=== PATIENT | male | born 1935 | race Hispanic/Latino ===

== ENCOUNTER 2017-06-06 12:51 | Inpatient (IN) | payer MEDICARE, OTHER ==
[~2017-06-06] VITALS: Ht 165.1 cm; Wt 104.5 kg
[2017-06-06] MEDS ORDERED: SODIUM CHLORIDE 0.9% 1000ML 3,000 ML IV ONE (13:14)
[2017-06-06 13:19] LABS: BILIRUBIN,URINE SMALL (NEGATIVE); COLOR,URINE YELLOW (YELLOW); GLUCOSE, URINE (UA) 250 mg/dL (NEGATIVE); KETONES,URINE 5 mg/dL (NEGATIVE); LEUKOCYTE ESTERASE ,URINE MODERATE (NEGATIVE); NITRATE,URINE NEGATIVE (NEGATIVE); OCCULT BLOOD,URINE LARGE (NEGATIVE); PH,URINE 5.5 (5.0-8.0); PROTEIN,URINE >=300 (NEGATIVE)
[2017-06-06 13:23] LABS: APPEARANCE,URINE HAZY (CLEAR)
[2017-06-06 13:24] LABS: BACTERIA,URINE Many /HPF (None Seen); SQUAMOUS EPITHELIAL CELL,UR Rare /HPF (0-2); WBC,URINE TNTC /HPF (0-1)
[2017-06-06 13:44] LABS: BASOPHILS % (AUTO) 0.2 % (0.0-5.0); HEMATOCRIT 33.6 % (42-54); LYMPHOCYTES % (AUTO) 5.9 % (21.0-51.0); MEAN CORPUSCULAR HEMOGLOBIN 26.9 pg (27.0-33.0); MEAN CORPUSCULAR HGB CONC 33.8 g/dL (32.0-36.0); MEAN CORPUSCULAR VOLUME 79.6 fL (79-99); MONOCYTES % (AUTO) 10.8 % (3.0-13.0); NEUTROPHILS % (AUTO) 83.1 % (40.0-77.0); PLATELET COUNT (AUTO) 153 K/uL (130-400); RED BLOOD CELL COUNT(AUTO) 4.23 MIL/uL (4.50-6.20); RED CELL DISTRIBUTION WIDTH 15.7 % (11.0-15.5); WHITE BLOOD COUNT (AUTO) 6.3 K/uL (4.8-10.8)
[2017-06-06 13:52] LABS: CARBON DIOXIDE 26 mmol/L (21-32); CHLORIDE 100 mmol/L (101-111); CREATININE 1.6 mg/dL (0.5-1.5); GLOMERULAR FILTR. RATE CALC 45 mL/min (>60); GLUCOSE,RANDOM 217 mg/dL (70-105); POTASSIUM 3.4 mmol/L (3.5-5.1); SODIUM SERUM 136 mmol/L (136-145); UREA NITROGEN, BLOOD 19 mg/dL (7-18)
[2017-06-06 13:56] LABS: INR 1.04 (0.85-1.15); PARTIAL THROMBOPLASTIN TIME 28.6 SEC (26.3-35.5); PROTHROMBIN TIME 10.9 SEC (9.6-11.6)
[2017-06-06 14:20] LABS: ALANINE AMINOTRANSFERASE 63 U/L (12-78); ASPARTATE AMINOTRANSFERASE 198 U/L (10-37); BILIRUBIN,TOTAL 1.4 mg/dL (0.2-1.0); CREATINE KINASE MB 83.6 ng/mL (0.5-3.6); TOTAL PROTEIN, SERUM 7.7 g/dL (6.0-8.3); TROPONIN I < 0.04 ng/mL (0.00-0.06)
[2017-06-06] MEDS ORDERED: CEFTRIAXONE SODIUM 1 GM ONE (14:26)
[2017-06-06 15:29] LABS: MYOGLOBIN 17209 ng/mL (10-92)
[2017-06-06 15:31] LABS: CREATINE KINASE, TOTAL 9338 U/L (21-232)
[2017-06-06] MEDS: SODIUM CHLORIDE 0.9% 1000ML 1,000 ML IV SCH ×2 (16:06→21:51)
[2017-06-06] MEDS ORDERED: CEFTRIAXONE 1GM/D5W 50ML 50 ML IV SCH (16:15)
[2017-06-06] MEDS ORDERED: GUAIFENESIN-DM 200/20 MG 10 ML PO PRN (16:15)
[2017-06-06] MEDS ORDERED: LACTULOSE 20 GM/30 ML UDCUP PO PRN (16:15)
[2017-06-06] MEDS ORDERED: ACETAMINOPHEN 325 MG TAB PO PRN (16:15)
[2017-06-06] MEDS ORDERED: ACETAMINOPHEN-CODEINE 300/30MG TAB ONE (16:16)
[2017-06-06] MEDS ORDERED: ONDANSETRON HCL MDV 20ML 2 MG/ML VIAL IVP PRN (16:30)
[2017-06-06 21:00] VITALS: BP 155/80
[2017-06-06] MEDS ORDERED: FENO145T37 PO (21:22)
[2017-06-06] MEDS ORDERED: SITA100T12 PO (21:22)
[2017-06-06] MEDS ORDERED: LOSA50TA37 PO (21:22)
[2017-06-06] MEDS ORDERED: METO50TA18 PO (21:22)
[2017-06-06] MEDS ORDERED: PRAV40TA3 PO (21:22)
[2017-06-06] MEDS ORDERED: AMLO10TA2 PO (21:22)
[2017-06-06] MEDS ORDERED: PIOG30TA26 PO (21:22)
[2017-06-06] MEDS: FAMOTIDINE/PF 20 MG/2 ML VIAL IV SCH (21:51)
[2017-06-07] VITALS (7 sets, daily range): BP systolic 140–166; BP diastolic 65–92
[2017-06-07] MEDS: ACETAMINOPHEN 325 MG TAB PO PRN ×2 (00:02→20:20)
[2017-06-07] MEDS: SODIUM CHLORIDE 0.9% 1000ML 1,000 ML IV SCH ×4 (03:32→20:41)
[2017-06-07 04:52] LABS: HEMATOCRIT 31.2 % (42-54); MEAN CORPUSCULAR VOLUME 79.9 fL (79-99); PLATELET COUNT (AUTO) 150 K/uL (130-400); WHITE BLOOD COUNT (AUTO) 6.2 K/uL (4.8-10.8)
[2017-06-07 05:46] LABS: ALBUMIN 2.4 g/dL (3.5-5.0); BILIRUBIN,TOTAL 1.1 mg/dL (0.2-1.0); CREATINE KINASE MB 21.7 ng/mL (0.5-3.6); CREATININE 1.4 mg/dL (0.5-1.5); POTASSIUM 3.3 mmol/L (3.5-5.1); TOTAL PROTEIN, SERUM 6.6 g/dL (6.0-8.3); TROPONIN I 0.05 ng/mL (0.00-0.06)
[2017-06-07] MEDS ORDERED: GLUCAGON 1MG KIT 1 MG ML IM PRN (06:00)
[2017-06-07] MEDS ORDERED: DEXTROSE 50%-WATER 50 ML DISP.SYRIN IV PRN (06:00)
[2017-06-07] MEDS: INSULIN HUMULIN R 100 UNIT/ML 3ML SQ SCH ×4 (06:40→20:15)
[2017-06-07] MEDS: CEFTRIAXONE SODIUM 1 GM IVP SCH (08:18)
[2017-06-07] MEDS: FAMOTIDINE/PF 20 MG/2 ML VIAL IV SCH ×2 (09:00→20:20)
[2017-06-07] MEDS ORDERED: DIATR MEGLU/DIATRIZOATE SODIUM 30 ML BOTTLE ONE (11:02)
[2017-06-07] MEDS: METOPROLOL TARTRATE 50 MG TAB PO SCH (20:19)
[2017-06-08] MEDS: SODIUM CHLORIDE 0.9% 1000ML 1,000 ML IV SCH ×2 (02:24→05:00)
[2017-06-08 04:00] VITALS: BP 126/63
[2017-06-08 05:40] LABS: HEMATOCRIT 28.3 % (42-54); MEAN CORPUSCULAR HEMOGLOBIN 27.3 pg (27.0-33.0); MEAN CORPUSCULAR HGB CONC 34.4 g/dL (32.0-36.0); MEAN CORPUSCULAR VOLUME 79.3 fL (79-99); PLATELET COUNT (AUTO) 145 K/uL (130-400); RED BLOOD CELL COUNT(AUTO) 3.57 MIL/uL (4.50-6.20); RED CELL DISTRIBUTION WIDTH 16.1 % (11.0-15.5)
[2017-06-08 06:10] LABS: BILIRUBIN,TOTAL 0.5 mg/dL (0.2-1.0); CREATININE 1.1 mg/dL (0.5-1.5); POTASSIUM 3.3 mmol/L (3.5-5.1)
[2017-06-08] MEDS: INSULIN HUMULIN R 100 UNIT/ML 3ML SQ SCH ×4 (07:19→21:00)
[2017-06-08 08:00] VITALS: BP 130/76
[2017-06-08 08:27] LABS: BASOPHILS % (MANUAL) 1 % (0-2); EOSINOPHILS % (MANUAL) 2 % (1-6); LYMPHOCYTES % (MANUAL) 8 % (22-44); MAN.DIFF COMMENT-IMPRESSION MANUAL DIFFERENTIAL; MONOCYTES % (MANUAL) 14 % (2-9); PLATELET MORPHOLOGY COMMENT ADEQUATE; REACTIVE LYMPHOCYTES 1 % (0-0); SEGMENTED NEUTROPHILS % 74 % (40-70)
[2017-06-08] MEDS: THIAMINE HCL 100 MG TABLET PO SCH (08:43)
[2017-06-08] MEDS: AMLODIPINE BESYLATE 5 MG TAB PO SCH (08:43)
[2017-06-08] MEDS: METOPROLOL TARTRATE 50 MG TAB PO SCH ×2 (08:43→20:21)
[2017-06-08] MEDS: FOLIC ACID/VITAMIN B COMP W-C 1 MG CAPSULE PO SCH (08:43)
[2017-06-08] MEDS: CEFTRIAXONE SODIUM 1 GM IVP SCH (08:55)
[2017-06-08] MEDS: FAMOTIDINE/PF 20 MG/2 ML VIAL IV SCH ×2 (09:00→20:25)
[2017-06-08] MEDS ORDERED: MORPHINE SULFATE 4 MG/1ML SYG IVP PRN (10:00)
[2017-06-08] MEDS ORDERED: ACETAMINOPHEN-CODEINE 300/30MG TAB PO PRN (10:00)
[2017-06-08] MEDS ORDERED: MORPHINE SULFATE 2 MG/ML 1ML SYG IVP PRN (10:00)
[2017-06-08] MEDS: LINAGLIPTIN 5 MG TABLET PO SCH (11:20)
[2017-06-08 12:00] VITALS: BP_SYST 132; BP_SYST 158; BP_DIAS 101; BP_DIAS 76
[2017-06-08] MEDS: MEROPENEM 500 MG VIAL IVP SCH ×2 (13:26→21:26)
[2017-06-08] MEDS: SIMETHICONE 80 MG TAB.CHEW PO SCH ×3 (13:27→20:21)
[2017-06-08] MEDS ORDERED: MEROPENEM 500MG+NS 50ML 50 ML IV SCH (14:00)
[2017-06-08 16:00] VITALS: BP 158/76
[2017-06-08 20:00] VITALS: BP 143/70
[2017-06-09] VITALS: BP 134/57
[2017-06-09 04:00] VITALS: BP 138/64
[2017-06-09] MEDS: MEROPENEM 500 MG VIAL IVP SCH ×2 (06:33→18:14)
[2017-06-09 06:55] LABS: CREATININE 1.1 mg/dL (0.5-1.5); POTASSIUM 3.5 mmol/L (3.5-5.1)
[2017-06-09 07:01] LABS: HEMATOCRIT 28.6 % (42-54); MEAN CORPUSCULAR HEMOGLOBIN 27.8 pg (27.0-33.0); MEAN CORPUSCULAR HGB CONC 35.1 g/dL (32.0-36.0); MEAN CORPUSCULAR VOLUME 79.3 fL (79-99); PLATELET COUNT (AUTO) 166 K/uL (130-400); RED CELL DISTRIBUTION WIDTH 15.9 % (11.0-15.5); WHITE BLOOD COUNT (AUTO) 4.3 K/uL (4.8-10.8)
[2017-06-09] MEDS: INSULIN HUMULIN R 100 UNIT/ML 3ML SQ SCH ×4 (07:30→21:00)
[2017-06-09 08:17] VITALS: BP 138/62
[2017-06-09] MEDS: FAMOTIDINE/PF 20 MG/2 ML VIAL IV SCH ×2 (09:00→20:18)
[2017-06-09] MEDS: **HM** FENOFIBRATE 160MG PO SCH (09:00)
[2017-06-09] MEDS: FOLIC ACID/VITAMIN B COMP W-C 1 MG CAPSULE PO SCH (09:36)
[2017-06-09] MEDS: LOSARTAN 50 MG TABLET PO SCH (09:36)
[2017-06-09] MEDS: AMLODIPINE BESYLATE 5 MG TAB PO SCH (09:36)
[2017-06-09] MEDS: LINAGLIPTIN 5 MG TABLET PO SCH (09:36)
[2017-06-09] MEDS: THIAMINE HCL 100 MG TABLET PO SCH (09:36)
[2017-06-09] MEDS: SIMETHICONE 80 MG TAB.CHEW PO SCH ×4 (09:36→20:19)
[2017-06-09] MEDS: METOPROLOL TARTRATE 50 MG TAB PO SCH ×2 (09:36→20:19)
[2017-06-09 11:20] VITALS: BP 119/54
[2017-06-09] MEDS: ACETAMINOPHEN-CODEINE 300/30MG TAB PO PRN (12:00)
[2017-06-09] MEDS ORDERED: LEVOFLOXACIN 500 MG/D5W 100 ML 100 ML IV SCH (12:15)
[2017-06-09 17:05] VITALS: BP 149/69
[2017-06-09 20:00] VITALS: BP 136/64
[2017-06-10] VITALS: BP 146/60
[2017-06-10 04:00] VITALS: BP 143/67
[2017-06-10 05:36] LABS: HEMATOCRIT 28.5 % (42-54); MEAN CORPUSCULAR HEMOGLOBIN 27.3 pg (27.0-33.0); MEAN CORPUSCULAR HGB CONC 34.3 g/dL (32.0-36.0); MEAN CORPUSCULAR VOLUME 79.6 fL (79-99); PLATELET COUNT (AUTO) 194 K/uL (130-400); RED BLOOD CELL COUNT(AUTO) 3.58 MIL/uL (4.50-6.20); RED CELL DISTRIBUTION WIDTH 15.9 % (11.0-15.5); WHITE BLOOD COUNT (AUTO) 3.7 K/uL (4.8-10.8)
[2017-06-10 05:54] LABS: POTASSIUM 3.5 mmol/L (3.5-5.1)
[2017-06-10] MEDS: INSULIN HUMULIN R 100 UNIT/ML 3ML SQ SCH (06:35)
[2017-06-10 08:04] VITALS: BP 157/67
[2017-06-10] MEDS: FAMOTIDINE/PF 20 MG/2 ML VIAL IV SCH (09:00)
[2017-06-10] MEDS: **HM** FENOFIBRATE 160MG PO SCH (09:00)
[2017-06-10] MEDS ORDERED: ENOXAPARIN SODIUM 30 MG/0.3 ML SQ SCH (09:00)
[2017-06-10] MEDS: THIAMINE HCL 100 MG TABLET PO SCH (10:11)
[2017-06-10] MEDS: LINAGLIPTIN 5 MG TABLET PO SCH (10:11)
[2017-06-10] MEDS: LOSARTAN 50 MG TABLET PO SCH (10:11)
[2017-06-10] MEDS: METOPROLOL TARTRATE 50 MG TAB PO SCH (10:11)
[2017-06-10] MEDS: FOLIC ACID/VITAMIN B COMP W-C 1 MG CAPSULE PO SCH (10:11)
[2017-06-10] MEDS: ACETAMINOPHEN-CODEINE 300/30MG TAB PO PRN (10:11)
[2017-06-10] MEDS: AMLODIPINE BESYLATE 5 MG TAB PO SCH (10:11)
[2017-06-10] MEDS: SIMETHICONE 80 MG TAB.CHEW PO SCH ×2 (10:11→14:38)
[2017-06-10 11:38] VITALS: BP 132/54
[2017-06-10] MEDS ORDERED: LEVOFLOXACIN 250 MG/D5W 50ML IVPB SCH (12:15)
[2017-09-08] MEDS ORDERED: LINA5TAB PO (13:43)
[2017-09-08] MEDS ORDERED: DONE5TAB33 PO (13:43)
[2017-09-08] MEDS ORDERED: DULO30CA51 PO (13:43)
[2017-09-08] MEDS ORDERED: TAMS-1 PO (13:43)
[2017-09-08] MEDS ORDERED: PREG75 PO (13:43)
== END 2017-06-10 19:00 | DRG 872 ==
LOC: EDH 12:51 → EDHIP 16:06 → 4BH 21:08
PROVIDERS: ADMIT Family Medicine; ATTEND Family Medicine
DX: A41.9 Sepsis, unspecified organism (principal); N17.9 Acute kidney failure, unspecified; E11.21 Type 2 diabetes mellitus with diabetic nephropathy; K56.7 Ileus, unspecified; M62.82 Rhabdomyolysis; E86.0 Dehydration; N39.0 Urinary tract infection, site not specified; W19.XXXA Unspecified fall, initial encounter; D64.9 Anemia, unspecified; B96.20 Unspecified Escherichia coli [E. coli] as the cause of diseases classified elsewhere; B96.89 Other specified bacterial agents as the cause of diseases classified elsewhere; E78.5 Hyperlipidemia, unspecified; F03.90 Unspecified dementia, unspecified severity, without behavioral disturbance, psychotic disturbance, mood disturbance, and anxiety; I10 Essential (primary) hypertension; M47.9 Spondylosis, unspecified; N20.0 Calculus of kidney; R32 Unspecified urinary incontinence; Z86.73 Personal history of transient ischemic attack (TIA), and cerebral infarction without residual deficits; Z87.440 Personal history of urinary (tract) infections; Z91.81 History of falling; Y93.89 Activity, other specified; Y92.89 Other specified places as the place of occurrence of the external cause; Y99.8 Other external cause status
CPT/HCPCS: 36415; 71045; 72100; 72170; 73610; 73630; 74018; 74176; 76770; 80048; 80053; 81001; 82550; 82553; 82948; 83605; 83735; 83874; 84484; 85025; 85027; 85610; 85730; 87040; 87088; 87186; 93005; 93970; 97039; A4218; J0696; J1650; J1956; J2185; J3490; J7030; Q9963

== ENCOUNTER → 2017-08-31 | Outpatient (CLI) | payer OTHER ==
[~2017-08-31] MED LIST: AMLO10TA2 PO; DONE5TAB33 PO; DULO30CA51 PO; FENO145T37 PO; IOPAMIDOL-370 75 ML VIAL IV ONE; LINA5TAB PO; LOSA50TA37 PO; METO50TA18 PO; PIOG30TA70 PO; PRAV40TA3 PO; PREG75 PO; SITA100T12 PO; TAMS-1 PO
== END | disposition home or self-care (01) ==
LOC: RAH 07:48
PROVIDERS: ATTEND Internal Medicine
DX: N28.1 Cyst of kidney, acquired (principal)
CPT/HCPCS: 74178; Q9967

== ENCOUNTER → 2017-09-08 | Outpatient (CLI) | payer OTHER ==
[~2017-09-08] VITALS: Ht 162.6 cm; Wt 90.1 kg
[~2017-09-08] MED LIST changes: -IOPAMIDOL-370 75 ML VIAL IV ONE
[2017-09-08 11:38] LABS: BASOPHILS % (AUTO) 0.4 % (0.0-5.0); EOSINOPHILS % (AUTO) 2.6 % (0.0-8.0); HEMATOCRIT 37.8 % (42-54); LYMPHOCYTES % (AUTO) 26.5 % (21.0-51.0); MEAN CORPUSCULAR HGB CONC 35.1 g/dL (32.0-36.0); MEAN CORPUSCULAR VOLUME 82.8 fL (79-99); MONOCYTES % (AUTO) 8.5 % (3.0-13.0); NUCLEATED RED BLOOD CELLS 0.1 % (0.0-0.19); PLATELET COUNT (AUTO) 156 K/uL (130-400); RED BLOOD CELL COUNT(AUTO) 4.57 MIL/uL (4.50-6.20); RED CELL DISTRIBUTION WIDTH 14.8 % (11.0-15.5); WHITE BLOOD COUNT (AUTO) 4.8 K/uL (4.8-10.8)
[2017-09-08 11:46] LABS: INR 1.06 (0.85-1.15); PROTHROMBIN TIME 11.1 SEC (9.6-11.6)
[2017-09-08 11:47] LABS: CREATININE 1.4 mg/dL (0.5-1.5); POTASSIUM 3.6 mmol/L (3.5-5.1)
[2017-09-08 11:59] LABS: APPEARANCE,URINE Clear (CLEAR); BILIRUBIN,URINE Negative (NEGATIVE); COLOR,URINE Yellow (YELLOW); GLUCOSE, URINE (UA) Negative (NEGATIVE); KETONES,URINE Negative (NEGATIVE); LEUKOCYTE ESTERASE ,URINE Negative (NEGATIVE); NITRATE,URINE Negative (NEGATIVE); OCCULT BLOOD,URINE Negative (NEGATIVE); PROTEIN,URINE Negative (NEGATIVE)
[2017-09-08 12:20] VITALS: BP 147/66
== END | disposition home or self-care (01) ==
LOC: DAH 10:00 → EDSTATUS 11:15
PROVIDERS: ATTEND Surgery
DX: Z01.818 Encounter for other preprocedural examination (principal); C18.6 Malignant neoplasm of descending colon; I10 Essential (primary) hypertension; E78.5 Hyperlipidemia, unspecified; E11.9 Type 2 diabetes mellitus without complications
CPT/HCPCS: 36415; 80048; 81003; 85025; 85610; 93005

== ENCOUNTER → 2017-09-14 | Outpatient (CLI) | payer OTHER ==
[~2017-09-14] VITALS: Ht 160 cm; Wt 88.9 kg
[~2017-09-14] MED LIST changes: +REGADENOSON 0.4 MG/5 ML PF SYG IVP SCH; -SITA100T12 PO
== END | disposition home or self-care (01) ==
LOC: SHCH 09:08
PROVIDERS: ATTEND Internal Medicine Cardiovascular Disease
DX: R94.31 Abnormal electrocardiogram [ECG] [EKG] (principal); R05 Cough; R06.00 Dyspnea, unspecified
CPT/HCPCS: 78452; 93017; 96374; A9500 ×2; J2785

== ENCOUNTER 2018-06-25 16:48 | Inpatient (IN) | payer OTHER ==
[~2018-06-25] VITALS: Ht 167.6 cm; Wt 90.6 kg
[~2018-06-25 16:48] MED LIST changes: +ACET1TAB12 PO; -AMLO10TA2 PO; +AMLO10TA7 PO; -LOSA50TA37 PO; +LOSA50TA64 PO; -PREG75 PO; -REGADENOSON 0.4 MG/5 ML PF SYG IVP SCH
[2018-06-25 18:31] LABS: BASOPHILS % (AUTO) 0.3 % (0.0-5.0); EOSINOPHILS % (AUTO) 1.2 % (0.0-8.0); HEMATOCRIT 40.8 % (42-54); LYMPHOCYTES % (AUTO) 17.6 % (21.0-51.0); MEAN CORPUSCULAR HEMOGLOBIN 28.5 pg (27.0-33.0); MEAN CORPUSCULAR HGB CONC 33.9 g/dL (32.0-36.0); MEAN CORPUSCULAR VOLUME 84.1 fL (79-99); MONOCYTES % (AUTO) 6.2 % (3.0-13.0); NEUTROPHILS % (AUTO) 74.7 % (40.0-77.0); NUCLEATED RED BLOOD CELLS 0.1 % (0.0-0.19); PLATELET COUNT (AUTO) 148 K/uL (130-400); RED BLOOD CELL COUNT(AUTO) 4.85 MIL/uL (4.50-6.20); RED CELL DISTRIBUTION WIDTH 18.2 % (11.0-15.5); WHITE BLOOD COUNT (AUTO) 5.2 K/uL (4.8-10.8)
[2018-06-25 18:42] LABS: CREATININE 1.1 mg/dL (0.5-1.5); POTASSIUM 3.6 mmol/L (3.5-5.1)
[2018-06-25 18:43] LABS: APPEARANCE,URINE Clear (CLEAR); BILIRUBIN,URINE Negative (NEGATIVE); COLOR,URINE Yellow (YELLOW); GLUCOSE, URINE (UA) Negative (NEGATIVE); KETONES,URINE Negative (NEGATIVE); LEUKOCYTE ESTERASE ,URINE Negative (NEGATIVE); NITRATE,URINE Negative (NEGATIVE); OCCULT BLOOD,URINE Negative (NEGATIVE); PROTEIN,URINE Negative (NEGATIVE); UROBILINOGEN,URINE 0.2 mg/dL (0.2-1.0)
[2018-06-25 18:46] LABS: ALBUMIN 3.8 g/dL (3.5-5.0); BILIRUBIN,TOTAL 0.5 mg/dL (0.2-1.0); TOTAL PROTEIN, SERUM 7.3 g/dL (6.0-8.3)
[2018-06-25] MEDS ORDERED: HYDROCODONE/ACETAMINOPHEN 5/325 MG TAB ONE (19:26)
[2018-06-25] MEDS ORDERED: METOPROLOL TARTRATE 50 MG TAB ONE (20:32)
[2018-06-25] MEDS ORDERED: ATORVASTATIN CALCIUM 10 MG TABLET PO SCH (21:30)
[2018-06-25] MEDS ORDERED: DULOXETINE HCL 30 MG CAP PO SCH (21:30)
--- NOTE | 2018-06-25 22:05 | NUR ---
ADMISSION NOTE ADMIT PATIENT TO ROOM 409 VIA STRETCHER FROM ER. PATIENT AWAKE, ALERT, OX3, LEFT HAND 20 GAUGE CATHETER PATENT, PLACE ON FALL PRECAUTIONS, PATIENT S FAMILY AT BEDSIDE, TEACH PLAN OF CARE AND EXPECTED OUTCOME, BOTH VERBALIZES UNDERSTANDING VIA TEACH BACK
[2018-06-25] MEDS ORDERED: DIFENIDOL PO (22:34)
[2018-06-25] MEDS ORDERED: FERR159T2 PO (22:34)
[2018-06-25] MEDS ORDERED: METO50TA18 PO (22:34)
[2018-06-25] MEDS ORDERED: SERT50TA12 PO (22:34)
[2018-06-25] MEDS ORDERED: GLIM2TAB3 PO (22:34)
[2018-06-25] MEDS ORDERED: ERGO500014 PO (22:34)
[2018-06-25] MEDS ORDERED: TAMS-1 PO (22:34)
[2018-06-25 23:10] VITALS: BP 179/103
[2018-06-26] VITALS (9 sets, daily range): BP systolic 156–195; BP diastolic 72–105
[2018-06-26] MEDS: HYDROCODONE/ACETAMINOPHEN 5/325 MG TAB PO PRN ×2 (03:47→20:13)
[2018-06-26] MEDS ORDERED: HYDRALAZINE HCL 20 MG/ML VIAL ONE ×2 (04:04→04:13)
--- NOTE | 2018-06-26 04:15 | NUR ---
B/P B/P 200/105, P 83 R 20 TEMP 97.9 F SAT 95 R/A, CALLED BENCH DIANA SYRUP MIXER ASSISTANT REJI ADAN REFINERY OPERATOR [facility] INFORMED WITH ORDERS, HYDRALAZINE 20 MG IVP GIVEN SLOWLY
--- NOTE | 2018-06-26 05:00 | NUR ---
MED EFFECT B/P 167/85
[2018-06-26] MEDS: HYDRALAZINE HCL 20 MG/ML VIAL IV SCH ×2 (06:05→19:21)
[2018-06-26] MEDS: TAMSULOSIN HCL 0.4 MG CAP.ER.24H PO SCH (08:14)
[2018-06-26] MEDS: FERROUS SULFATE 325 MG TABLET.DR PO SCH (08:14)
[2018-06-26] MEDS: METOPROLOL TARTRATE 50 MG TAB PO SCH ×2 (08:14→20:08)
[2018-06-26] MEDS: LOSARTAN 50 MG TABLET PO SCH (08:15)
[2018-06-26] MEDS: GLIMEPIRIDE 2 MG TABLET PO SCH (08:15)
[2018-06-26] MEDS: ATORVASTATIN CALCIUM 10 MG TABLET PO SCH (08:15)
[2018-06-26] MEDS: **HM** FENOFIBRATE 160MG PO SCH (08:21)
[2018-06-26] MEDS ORDERED: DIFENIDOL PO PRN (09:00)
--- NOTE | 2018-06-26 10:00 | NUR ---
NOT TOLERATING PO DIET PATIENT ATTEMPTED LOW FAT SOFT DIET. PATIENT REPORTS SHORTING AFTER DRINKING ORANGE JUICE, SHE STARTED FEELING NAUSEOUS AND REPORTS "THROWING UP", ALSO REPORTS ABDOMINAL PAIN WORSENED AFTER EATING. ADMINISTERED PRN TORADOL IV AND PRN ZOFRAN IV. WILL CONTINUE TO MONITOR. Addendum: 06/26/18 at 1024 by ELVA KNIGHT RN RN DISREGARD NOTE. ENTERED IN ERROR.
--- NOTE | 2018-06-26 12:38 | NUR ---
Nutrition Intervention: Nutrition consult due uncontrolled hypertension and poor appetite. Pt. admitted with Dx of Weakness. Pt. on 75gm CCD diet. Pt. reports ate <50% of his b'fast meal this morning. Spoke with pt. regarding nutritional supplementation and pt. agreed to try. Labs reviewed(Alb 3.8). LBM: 06/25/18. SR-19, Righ hip & arm bruise. BMI: 32.2, overweight for age. Pt. educated on Low Sodium diet and provided with education material. Pt. verbalized understanding. Recommendations: 1) Rec. 2gm Na 75gm CCD diet. 2) Rec. Encinal Glucerna supp. BID with B'fast and dinner meals. 3) Continue to monitor pt's nutritional status. 4) Consult RD as nutrition concerns arise. Addendum: 06/26/18 at [address] Amended: Links added.
--- NOTE | 2018-06-26 16:45 | NUR ---
ELEVATED BLOOD PRESSURE BLOOD PRESSURE REPORTED 187/97. ADMINISTERED APRESOLINE 10MG IV PRN.
[2018-06-26] MEDS: HYDRALAZINE HCL 20 MG/ML VIAL IV PRN (16:48)
--- NOTE | 2018-06-26 17:00 | NUR ---
BP REASSESSMENT BLOOD PRESSURE RECHECK REPORTED 161/82, PATIENT ASYMPTOMATIC WILL CONTINUE TO MONITOR.
[2018-06-26] MEDS ORDERED: SERTRALINE HCL 50 MG TABLET PO SCH (21:00)
[2018-06-27] VITALS (7 sets, daily range): BP systolic 160–192; BP diastolic 67–103
[2018-06-27 05:39] LABS: BASOPHILS % (AUTO) 0.3 % (0.0-5.0); HEMATOCRIT 40.8 % (42-54); LYMPHOCYTES % (AUTO) 27.4 % (21.0-51.0); MEAN CORPUSCULAR HEMOGLOBIN 28.7 pg (27.0-33.0); MEAN CORPUSCULAR HGB CONC 33.7 g/dL (32.0-36.0); MEAN CORPUSCULAR VOLUME 85.1 fL (79-99); MONOCYTES % (AUTO) 9.2 % (3.0-13.0); NEUTROPHILS % (AUTO) 61.1 % (40.0-77.0); PLATELET COUNT (AUTO) 173 K/uL (130-400); RED CELL DISTRIBUTION WIDTH 18.1 % (11.0-15.5); WHITE BLOOD COUNT (AUTO) 4.7 K/uL (4.8-10.8)
[2018-06-27 05:51] LABS: HEMOGLOBIN A1C 5.6 % (4.0-6.0)
[2018-06-27 06:01] LABS: CREATININE 1.1 mg/dL (0.5-1.5); MAGNESIUM 1.8 mg/dL (1.80-2.40); PHOSPHORUS 3.9 mg/dL (2.5-4.9); POTASSIUM 3.4 mmol/L (3.5-5.1)
--- NOTE | 2018-06-27 07:45 | NUR ---
ELEVATED BP BLOOD PRESSURED REPORTED 192/103. ADMINISTERED APRESOLINE 10MG IV PRN.
[2018-06-27] MEDS: HYDROCODONE/ACETAMINOPHEN 5/325 MG TAB PO PRN ×2 (07:50→18:08)
[2018-06-27] MEDS: HYDRALAZINE HCL 20 MG/ML VIAL IV PRN ×2 (07:51→23:10)
[2018-06-27] MEDS ORDERED: POTASSIUM CHLORIDE 20 MEQ ERTAB PO PRN (08:15)
[2018-06-27] MEDS ORDERED: LIDOCAINE HCL-MPF 1% 2ML VIAL IVP PRN (08:15)
[2018-06-27] MEDS ORDERED: POTASSIUM CHLORIDE 10% ELIXIR 20 MEQ/15 ML UDCUP PO PRN (08:15)
[2018-06-27] MEDS ORDERED: POTASSIUM CHLORIDE 20MEQ/100ML 100 ML IV PRN (08:15)
--- NOTE | 2018-06-27 08:15 | NUR ---
BP RECHECK BLOOD PRESSURE REASSESSMENT 160/77, PATIENT ASYMPTOMATIC.
[2018-06-27] MEDS: **HM** FENOFIBRATE 160MG PO SCH (09:00)
[2018-06-27] MEDS: ATORVASTATIN CALCIUM 10 MG TABLET PO SCH (09:12)
[2018-06-27] MEDS: FERROUS SULFATE 325 MG TABLET.DR PO SCH (09:13)
[2018-06-27] MEDS: GLIMEPIRIDE 2 MG TABLET PO SCH (09:13)
[2018-06-27] MEDS: LOSARTAN 50 MG TABLET PO SCH (09:13)
[2018-06-27] MEDS: PANTOPRAZOLE SODIUM 40 MG TABLET.DR PO SCH (09:13)
[2018-06-27] MEDS: METOPROLOL TARTRATE 50 MG TAB PO SCH ×2 (09:13→19:51)
[2018-06-27] MEDS: TAMSULOSIN HCL 0.4 MG CAP.ER.24H PO SCH (09:13)
[2018-06-27] MEDS: DULOXETINE HCL 30 MG CAP PO SCH ×2 (09:14→19:51)
--- NOTE | 2018-06-27 14:18 | NUR ---
cm note met with patient and states resides athome alone, uses walker and w/c, also states has hx of falls, informed of md orders for snf. and states that he is aware, and has been at [facility] in the past, choice letter signed, call made to daughter per pt request and spoke to talia hough, and states that she is in agreemetn for referral, states ok to refer to [facility], informed pt had concerns regarding if they will accept. not sure if he had a balance. but. per daughter states there was other issues, but ok to refer to [facility] and see if they will accept. Addendum: 06/27/18 at 1421 by CLAUDINE RICHARDSON CM Amended: Links added.
[2018-06-27] MEDS: HYDRALAZINE HCL 20 MG/ML VIAL IV SCH (19:49)
[2018-06-28] VITALS (7 sets, daily range): BP systolic 149–182; BP diastolic 64–88
[2018-06-28] MEDS: HYDROCODONE/ACETAMINOPHEN 5/325 MG TAB PO PRN ×2 (06:20→12:12)
[2018-06-28 06:27] LABS: BASOPHILS % (AUTO) 0.3 % (0.0-5.0); EOSINOPHILS % (AUTO) 2.5 % (0.0-8.0); HEMATOCRIT 40.5 % (42-54); LYMPHOCYTES % (AUTO) 22.8 % (21.0-51.0); MEAN CORPUSCULAR HEMOGLOBIN 28.6 pg (27.0-33.0); MEAN CORPUSCULAR HGB CONC 33.5 g/dL (32.0-36.0); MEAN CORPUSCULAR VOLUME 85.5 fL (79-99); MONOCYTES % (AUTO) 8.7 % (3.0-13.0); NEUTROPHILS % (AUTO) 65.7 % (40.0-77.0); PLATELET COUNT (AUTO) 150 K/uL (130-400); RED BLOOD CELL COUNT(AUTO) 4.74 MIL/uL (4.50-6.20); RED CELL DISTRIBUTION WIDTH 18.2 % (11.0-15.5); WHITE BLOOD COUNT (AUTO) 4.6 K/uL (4.8-10.8)
[2018-06-28 06:36] LABS: CREATININE 1.1 mg/dL (0.5-1.5); POTASSIUM 3.6 mmol/L (3.5-5.1)
[2018-06-28] MEDS: LOSARTAN 50 MG TABLET PO SCH (08:29)
[2018-06-28] MEDS: TAMSULOSIN HCL 0.4 MG CAP.ER.24H PO SCH (08:29)
[2018-06-28] MEDS: PANTOPRAZOLE SODIUM 40 MG TABLET.DR PO SCH (08:29)
[2018-06-28] MEDS: GLIMEPIRIDE 2 MG TABLET PO SCH (08:30)
[2018-06-28] MEDS: METOPROLOL TARTRATE 50 MG TAB PO SCH ×2 (08:30→21:21)
[2018-06-28] MEDS: ATORVASTATIN CALCIUM 10 MG TABLET PO SCH (08:30)
[2018-06-28] MEDS: FERROUS SULFATE 325 MG TABLET.DR PO SCH (08:31)
[2018-06-28] MEDS: DULOXETINE HCL 30 MG CAP PO SCH ×2 (08:31→21:21)
[2018-06-28] MEDS: **HM** FENOFIBRATE 160MG PO SCH (08:31)
--- NOTE | 2018-06-28 08:50 | NUR ---
JONNY PAGED AGAIN, PENDING CALL BACK
[2018-06-28] MEDS ORDERED: ERGOCALCIFEROL (VITAMIN D2) 50,000 UNIT CAPSULE PO SCH (09:00)
[2018-06-28 09:14] LABS: CREATINE KINASE, TOTAL 123 U/L (21-232); MYOGLOBIN 132 ng/mL (10-92); TROPONIN I < 0.04 ng/mL (0.00-0.06)
--- NOTE | 2018-06-28 10:04 | NUR ---
CALLED [facility] MADE AWARE OF PT'S CHEST PAIN" COMPLAIN BUT PT STATES HE HAS HAD THIS PAIN SINCE ADMISSION AND HAS NEVER WENT AWAY WENT OVER LAB RESULTS W/ [facility] EKG, CXR AND OTHER IMAGING STATED , IT WAS PROB MUSCULAR RELATED WILL CONTINUE TO MONITOR NO NEW ORDERS
--- NOTE | 2018-06-28 10:44 | NUR ---
DYSPHAGIA EVALUATION COMPLETED. DELAYED SWALLOW WITH LIQUIDS VIA STRAW. RECOMMEND MECHANICAL SOFT/CHOPPED, THIN LIQUIDS; PILLS WHOLE WITH LIQUIDS. PATIENT INFORMATION: Pt IS AN 82 YEAR OLD MALE REFERRED FOR A BEDSIDE DYSPHAGIA EVALUATION SECONDARY TO COMPLAINS OF DIFFICULTY SWALLOWING. Pt REPORTS THAT HE WAS HAVING A DIFFICULT TIME WITH TOAST SECONDARY TO POSITIONING. Pt REPORTS THAT HE USUALLY EATS WELL AT HOME. Pt CURRENTLY ADMITTED SECONDARY TO WEAKNESS S/P FALL. 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 EVALUATION: Pt PRESENTS WITH MILD OROPHARYNGEAL DYSPHAGIA CAUSED BY DECREASED ORAL MOTOR COORDINATION AND DELAYED PHARYNGEAL RESPONSE TIME EVIDENCED BY INCREASED MASTICATION TIME, DECREASED ROTARY MOTION DURING MASTICATION, AND MULTIPLE SWALLOWS. NO OVERT S/S OF ASPIRATION PRESENT AT THE TIME OF THE EVALUATION. RECOMMENDATIONS: 1. MECHANICAL SOFT/CHOPPED, THIN LIQUIDS; PILLS WHOLE WITH LIQUIDS. 2. COMPENSATORY STRATEGIES: *SEATED AT 90 DEGREES *NO STRAW *SLOW RATE G-CODES SWALLOWING: [id number] Addendum: 06/28/18 at [address] Amended: Links added.
--- NOTE | 2018-06-28 12:00 | NUR ---
CHART REVIEWED. CALL MADE TO [facility]- PENDING EVAL SPOKE TO SHONDA FROM [facility] RE REFERRAL, STATES SH WOULD BE IN SOON TO EVALUATION
--- NOTE | 2018-06-28 12:36 | NUR ---
dr. dayron milner as per visitor services information assistant chiu
--- NOTE | 2018-06-28 14:00 | NUR ---
ZULMA RONDON ROUNDED FOR DR. RUIZ NO NEW ORDERS GIVEN
--- NOTE | 2018-06-28 21:15 | NUR ---
DR. ZAVALETA ROUNDED
[2018-06-29] MEDS: HYDRALAZINE HCL 20 MG/ML VIAL IV PRN ×2 (00:57→07:03)
[2018-06-29 01:27] VITALS: BP 179/84
[2018-06-29 04:00] VITALS: BP 181/89
[2018-06-29] MEDS: HYDRALAZINE HCL 20 MG/ML VIAL IV SCH (04:15)
[2018-06-29 08:00] VITALS: BP 174/86
[2018-06-29] MEDS: TAMSULOSIN HCL 0.4 MG CAP.ER.24H PO SCH (08:32)
[2018-06-29] MEDS: ATORVASTATIN CALCIUM 10 MG TABLET PO SCH (08:32)
[2018-06-29] MEDS: FERROUS SULFATE 325 MG TABLET.DR PO SCH (08:32)
[2018-06-29] MEDS: DULOXETINE HCL 30 MG CAP PO SCH (08:32)
[2018-06-29] MEDS: PANTOPRAZOLE SODIUM 40 MG TABLET.DR PO SCH (08:33)
[2018-06-29] MEDS: GLIMEPIRIDE 2 MG TABLET PO SCH (08:33)
[2018-06-29] MEDS: METOPROLOL TARTRATE 50 MG TAB PO SCH (08:33)
[2018-06-29] MEDS: LOSARTAN 50 MG TABLET PO SCH (08:33)
[2018-06-29] MEDS: **HM** FENOFIBRATE 160MG PO SCH (08:40)
[2018-06-29 11:00] VITALS: BP 154/81
--- NOTE | 2018-06-29 11:56 | NUR ---
FOLLOW-UP COMPLETED. Pt TOLERATING CURRENT DIET. NO ISSUES OBSERVED AT THIS TIME. RECOMMEND CONTINUED MECHANICAL SOFT, THIN LIQUID DIET. Pt SEATED IN CHAIR AT 90 DEGREES. Addendum: 06/29/18 at 1157 by ROB FOX, [facility] Amended: Links added.
--- NOTE | 2018-06-29 14:45 | NUR ---
Nutrition f/u: Pt continues on 75gm diet therapy with nutrition supplementation. Pt reports good oral intake and no nutritional concerns. LBM 06/27 as per EMR-pt reports no concerns for constipation. As per ASSISTANT TRACK COACH notes, recommendations of mechanical soft diet-RD to update diet therapy to reflect recommendations. Recommendations: Continue current diet therapy. Consult RD as nutrition concerns arise. Addendum: 06/29/18 at [address] Amended: Links added.
== END 2018-06-29 16:41 | DRG 554 ==
LOC: EDH 16:48 → EDHIP 19:27 → OBSVTOIN 19:27 → 4BH 20:37
PROVIDERS: ADMIT Internal Medicine Critical Care Medicine; ATTEND Internal Medicine Critical Care Medicine
DX: M17.11 Unilateral primary osteoarthritis, right knee (principal); I69.351 Hemiplegia and hemiparesis following cerebral infarction affecting right dominant side; E11.9 Type 2 diabetes mellitus without complications; E78.5 Hyperlipidemia, unspecified; F03.90 Unspecified dementia, unspecified severity, without behavioral disturbance, psychotic disturbance, mood disturbance, and anxiety; I11.9 Hypertensive heart disease without heart failure; I45.10 Unspecified right bundle-branch block; M21.371 Foot drop, right foot; W19.XXXA Unspecified fall, initial encounter; Y93.89 Activity, other specified; Y92.89 Other specified places as the place of occurrence of the external cause; Y99.8 Other external cause status; Z85.038 Personal history of other malignant neoplasm of large intestine; Z90.49 Acquired absence of other specified parts of digestive tract; Z91.19 Patient's noncompliance with other medical treatment and regimen
CPT/HCPCS: 36415; 70450; 70544; 70551; 71045; 71100; 71250; 73030; 74150; 80048; 80053; 80061; 81003; 82550; 82948; 83036; 83735; 83874; 84100; 84484; 85025; 92610; 93005; 93306; 93880; 97039; G0378; J0360

== ENCOUNTER → 2023-06-04 | Outpatient (CLI) | payer OTHER ==
[~2023-06-04] MED LIST changes: -ACET1TAB12 PO; -AMLO10TA7 PO; +DIFENIDOL PO; -DONE5TAB33 PO; -DULO30CA51 PO; +DULO30CA52 PO; +ERGO500014 PO; +FENO145T26 PO; -FENO145T37 PO; +FERR159T2 PO; +GLIM2TAB30 PO; -LINA5TAB PO; -PIOG30TA70 PO; +SERT-439 PO
== END | disposition home or self-care (01) ==
LOC: SHCH 08:33
PROVIDERS: ATTEND Internal Medicine Cardiovascular Disease
DX: I08.0 Rheumatic disorders of both mitral and aortic valves (principal); I11.0 Hypertensive heart disease with heart failure; I50.22 Chronic systolic (congestive) heart failure; E11.9 Type 2 diabetes mellitus without complications; E78.5 Hyperlipidemia, unspecified
CPT/HCPCS: 93306

== ENCOUNTER 2023-07-08 08:10 | Day surgery (SDC) | payer OTHER ==
[~2023-07-08] VITALS: Ht 165.1 cm; Wt 77.1 kg
[2023-07-08] VITALS (11 sets, daily range): BP systolic 91–154; BP diastolic 47–65; PULSE 57–65; RESP 14–20
[2023-07-08] MEDS: 0.9%NACL 1000ML 1,000 ML IV ONE (06:16)
[~2023-07-08 08:10] MED LIST changes: +ASPI-1197 PO; +ATOR40TA69 PO; +CARV12.511 PO; +CLOP75TA32 PO; -DIFENIDOL PO; -DULO30CA52 PO; -ERGO500014 PO; -FERR159T2 PO; +FERS325 PO; +FURO40TA5 PO; -GLIM2TAB30 PO; +MEMA5TAB16 PO; -METO50TA18 PO; -PRAV40TA3 PO; +QUET25TA36 PO; +SPIR25TA PO
[2023-07-08] MEDS ORDERED: PROPOFOL 10 MG/ML 20ML VIAL IV ONE (09:39)
== END 2023-07-08 11:10 | disposition home or self-care (01) ==
LOC: DAH 08:10 → ENDO 08:10
PROVIDERS: ATTEND Internal Medicine Gastroenterology
DX: C18.6 Malignant neoplasm of descending colon (principal); K57.30 Diverticulosis of large intestine without perforation or abscess without bleeding; I25.10 Atherosclerotic heart disease of native coronary artery without angina pectoris; I10 Essential (primary) hypertension; E11.9 Type 2 diabetes mellitus without complications; E78.5 Hyperlipidemia, unspecified; E66.9 Obesity, unspecified; K59.01 Slow transit constipation; Z79.899 Other long term (current) drug therapy; Z86.73 Personal history of transient ischemic attack (TIA), and cerebral infarction without residual deficits
CPT/HCPCS: 82948; 45378; J7030 ×2; J2704; A4620; A4215; A4223; A4657; A7002; A4222; A4221; A4663; A4606; J3490